=== PATIENT | male | born 1935 | race African-American/Black ===

== ENCOUNTER 2017-03-03 19:29 | Emergency (ER) | payer OTHER ==
[~2017-03-03] VITALS: Ht 177.8 cm; Wt 100.0 kg
[~2017-03-03 19:29] MED LIST: CALC0.253 PO; CARB1TAB21 PO; DOCU-150 PO; FURO40TA5 PO; GABA-529 PO; GLIP5TAB12 PO; LEVO500T15 PO; LISI10TA5 PO; METO50TA5 PO; MORP30TA66 PO; NORT25CA PO; OMEP20CA10 PO; PRED5TAB48 PO; SIMV20TA6 PO
[2017-03-03 20:12] LABS: BASOPHILS % 0.8 % (0.0-2.0); EOSINOPHILS % 4.8 % (0.0-5.0); HEMOGLOBIN. 11.4 g/dL (14.0-18.0); LYMPHOCYTES % 40.2 % (20.0-50.0); MEAN CORPUSCULAR HEMOGLOBIN 29.4 pg (28.0-32.0); MEAN CORPUSCULAR VOLUME 90.4 fL (80.0-94.0); MEAN PLATELET VOLUME 7.5 fl (7.4-10.4); MONOCYTES % 12.1 % (2.0-8.0); NEUTROPHILS % 42.1 % (40.0-76.0); PLATELET 239 x1000/uL (130-400); RED BLOOD CELL COUNT 3.87 mill/uL (4.7-6.1); RED CELL DISTRIBUTION WIDTH 13.3 % (11.6-14.6)
[2017-03-03 20:20] LABS: PROTHROMBIN TIME 21.4 sec
[2017-03-03 20:33] LABS: CARBON DIOXIDE 28 mEq/L (21-32); CHLORIDE 107 mEq/L (98-107); TROPONIN I 0.02 ng/mL (0.00-0.04)
[2017-03-03 22:36] LABS: CLARITY URINE CLEAR (CLEAR); COLOR URINE DARK YELLOW (YELLOW); GLUCOSE URINE NEGATIVE (NEGATIVE); KETONES URINE TRACE (NEGATIVE); LEUKOCYTE ESTERASE URINE TRACE (NEGATIVE); NITRITE URINE NEGATIVE (NEGATIVE); OCCULT BLOOD URINE 1+ (NEGATIVE); PROTEIN URINE TRACE (NEGATIVE); SPECIFIC GRAVITY URINE 1.018 (1.005-1.030)
[2017-03-03] MEDS ORDERED: SODIUM CHLORIDE 0.9% 1,000 ML IV ONE (23:15)
[2017-03-04 01:20] VITALS: BP 123/74
== END 2017-03-04 01:54 | disposition short-term general hospital (02) ==
LOC: ER 19:30
DX: E86.0 Dehydration (principal); G93.49 Other encephalopathy; N28.9 Disorder of kidney and ureter, unspecified; I45.10 Unspecified right bundle-branch block; I11.0 Hypertensive heart disease with heart failure; I50.9 Heart failure, unspecified; E11.9 Type 2 diabetes mellitus without complications; Z96.659 Presence of unspecified artificial knee joint
CPT/HCPCS: 36415; 70450; 71010; 80053; 81001; 82962; 83605; 84484; 85025; 85610; 93005; 96360; 96361; 99285; J7030; A4315